=== PATIENT | female | born 1985 | race Caucasian/White ===

== ENCOUNTER → 2016-11-11 | Outpatient (CLI) | payer MEDICARE, MEDICAID ==
[~2016-11-11] MED LIST: BUSPIRONE HCL7.5 MG PO; DEPO PROVER150 MG/ML IM; ELAVIL100 MG PO; GEODON40 MG PO; GLUCOPHAGE1000 MG PO; K-TAB ER20 MEQ PO; LEVEMIR FL100 UNIT/1 SUB-Q; LIORESAL10 MG PO; LYRICA 50MG CAP50 MG PO; MINIPRESS1 MG PO; MOTRIN800 MG PO; NORCO 5-325 TA1 EACH PO; NOVOLOG100 UNIT/M SUB-Q; OPANA ER10 MG PO; PROTONIX40 MG PO; PROVENTIL OR V6.7 GM INH; SALAGEN5 MG PO; SYMBICORT 16010.2 GM INH; VERAPAMIL HCL120 MG PO; VIBERZI75 MG PO
--- NOTE | ~2016-11-11 | PUL ---
PATIENT'S NAME: ANNI RODRÍGUEZ [facility] AGE: 31 Y [address] ROOM: [place] [address] LOCATION: [facility] ADMIT DATE: 11/11/2016 Pulmonary DISCHARGE DATE: FAMILY PHYSICIAN: Wesly Dewitt MD ATTENDING PHYSICIAN: Wesly Dewitt NAME OF PROCEDURE: Sleep study DATE OF PROCEDURE: 11/11/16 TECH: Reilly Keating, INTERIOR PANELER TEST #: [facility] [place]# [id number] MEDICAL HISTORY: The patient is a 31-year-old overweight woman with daytime sleepiness and snoring. SLEEP STAGE SUMMARY: The patient was studied for 406 minutes of which she slept 388 minutes. She fell asleep in 4 minutes and slept for 96% of the night. Sleep architecture revealed a decline in REM sleep. RESPIRATORY SUMMARY: Oxygen saturations ranged from 89-95%. This study was done on 1 liter of oxygen because the patient wears it around the clock at home. There were 5 apneas and 9 hypopneas for an apnea/hypopnea index normal at 2.2 events per hour. EKG SUMMARY: No dysrhythmias were noted. LIMB MOVEMENT SUMMARY: No clinically relevant periodic limb movements were noted. SUMMARY: No evidence of significant obstructive sleep apnea on this study. PLAN: Patient will receive results from the ordering provider. MD SURESH CHILDRESS/ /[id number] dtt: 11/14/16 1303 Norma David E. dtd: 11/13/16 1332
== END | disposition disaster alternative care site (69) ==
LOC: GSLP 20:35
DX: G47.19 Other hypersomnia (principal); R06.83 Snoring

== ENCOUNTER → 2017-01-09 | Outpatient (CLI) | payer MEDICARE, MEDICAID | END | disposition disaster alternative care site (69) | LOC: LKCL 17:31 | DX: Z12.4 Encounter for screening for malignant neoplasm of cervix (principal) | CPT/HCPCS: G0145 ==

== ENCOUNTER 2017-03-02 10:38 | Inpatient (IN) | payer MEDICARE, MEDICAID ==
[~2017-03-02] VITALS: Ht 154.9 cm; Wt 112.5 kg
--- NOTE | ~2017-03-02 | ER ---
PATIENT'S NAME: ANNI RODRÍGUEZ [facility] AGE: 31 Y [address] ROOM: [address] [place] [address] LOCATION: [facility] ADMIT DATE: 03/02/2017 ER/Outpatient Report DISCHARGE DATE: FAMILY PHYSICIAN: Wesly Dewitt MD ATTENDING PHYSICIAN: Ronald BRADFORD Time of Arrival: 1038 hours. Time of Evaluation: 1045 hours. IDENTIFICATION: A 31-year-old female. CHIEF COMPLAINT: Vomiting. HISTORY OF PRESENT ILLNESS: The patient is a 31-year-old female, who went to the clinic to Dr. Dewitt's office and was sent here for IV fluids. Yesterday, she vomited 3 times but did not note any blood in it. Then last evening, she drank 5 bottles of water, went to the office today and was advised to come here. She also says she has some rash in her "private parts" and was told that could be checked out here as well. The patient has had no fever or chills. She had nausea, vomiting 3 times yesterday and one time this morning. She has excessive thirst. She has no history of diabetes. She is on metformin for polycystic ovarian disease, which she describes as "prediabetes." She apparently, however, did receive some IV fluids in [place], and at that time had an elevated blood sugar but is telling us that she had no recommendations for followup. ALLERGIES: PENICILLIN AND ORAL MORPHINE. CURRENT MEDICATIONS: 1. Pilocarpine 5 mg 4 times a day. 2. Metformin 1000 mg b.i.d. 3. Amitriptyline 100 mg 1-1/2 tablet at h.s. 4. Viberzi 75 mg 2 times daily. 5. KCl 20 mEq b.i.d. 6. Verapamil 120 mg b.i.d. 7. Hydrocodone and acetaminophen 5/325 one q.6-8 hours. 8. Baclofen 10 mg t.i.d. 9. Prazosin 1 mg at h.s. 10. Lyrica 50 mg in the morning and 100 mg at h.s. 11. Opana ER 10 mg b.i.d. 12. Buspirone 7.5 mg b.i.d. PATIENT'S NAME: ANNI RODRÍGUEZ [facility] AGE: 31 Y [address] ROOM: [address] [place], [place] [address] [facility] ADMIT DATE: 03/02/2017 ER/Outpatient Report DISCHARGE DATE: FAMILY PHYSICIAN: Wesly Dewitt MD ATTENDING PHYSICIAN: Ronald BRADFORD 13. Pantoprazole 40 mg daily. 14. Ziprasidone 40 mg daily for 7 days starting on 02/26/2017. 15. Ibuprofen 800 mg t.i.d. p.r.n. pain. 16. Depo-Provera. MEDICAL PROBLEMS: Bipolar disorder, chronic back pain, irritable bowel syndrome, polycystic ovarian disease, "prediabetes," and obesity. PRIOR SURGERIES: Cholecystectomy and 2 foot surgeries. FAMILY HISTORY: Positive for diabetes. SOCIAL HISTORY: The patient lives in [place]. She is disabled. Tobacco use, 1 pack per day for 15 years. Alcohol use, rare. Drug use, denies. REVIEW OF SYSTEMS: All systems reviewed and negative other than what is noted in the HPI. Specifically, she denies any chest pain. She is diaphoretic. She has slight cough. No shortness of breath. No abdominal pain. PHYSICAL EXAMINATION: VITAL SIGNS: Height 5 feet 1-1/2 inches, weight 108.2 kg, blood pressure 148/102, pulse 125, respirations 20, temperature 98.1, sats 96%. GENERAL: A diaphoretic, 31-year-old female, in no acute distress. HEENT: Head: Normocephalic, atraumatic. Ears: TMs translucent both ears. Eyes: Pupils equal and reactive to light and accommodation. Extraocular movements intact. Nose: Mucosa pink. No lesions or drainage. Mouth: No lesions. Pharynx benign. NECK: Supple. No lymphadenopathy. No nuchal rigidity. LUNGS: Clear to auscultation. Breath sounds are equal. No rhonchi, wheezes, or rales. HEART: Sinus tachycardia. No murmur, rub, or gallop. ABDOMEN: Protuberant. Bowel sounds present. Soft, nondistended, nontender. SKIN: Diaphoretic. No lesions. NEURO: The patient is alert and oriented x4. Cranial nerves 2 through 12 grossly intact. Motor strength 5/5 throughout. Sensation is intact to light touch. MUSCULOSKELETAL: She has no bony tenderness. : External genitalia, erythematous. No drainage. She has one scabbed lesion just above the clitoral ventura. PATIENT'S NAME: ANNI RODRÍGUEZ [facility] AGE: 31 Y [address] ROOM: [id number] [place], [place] [address] LOCATION: [facility] ADMIT DATE: 03/02/2017 ER/Outpatient Report DISCHARGE DATE: FAMILY PHYSICIAN: Wesly Dewitt MD ATTENDING PHYSICIAN: Ronald BRADFORD LABORATORY DATA AND X-RAYS: EKG: Sinus tachycardia, 117 beats per minute. No acute ST elevation or depression. T-wave inversion noted inferiorly and in leads V1 to V5. Lactate elevated at 3.6. Hemoglobin 13.4, hematocrit 42.3, platelets 369, white count 13.9, normal differential. UA: 1000 mg/dL glucose, 50 mg/dL of ketones, urine HCG negative. The pH of 7.26, pCO2 of 24, that is venous. Serum osmolality 311, magnesium 2.3. GC and chlamydia of the urine negative. Troponin I less than 0.040. Sodium 120, potassium 4.0, chloride 86, CO2 of 11, BUN 9, creatinine 1.4. Blood sugar 906. Liver enzymes elevated. AST 57, ALT 61, procalcitonin 0.11. Alcohol level less than 0.010. Hemoglobin A1c 12.2. Serum ketones positive 1:64. Urine drug screen negative. UA otherwise negative. Urine hCG negative. Wet prep of the vagina negative for yeast. IMPRESSION AND PLAN: 1. Diabetic ketoacidosis. The patient received 1 L of normal saline in the emergency room, insulin drip per protocol has been initiated with 10 units of bolus and 10 units/hour as recommended per Dr. Bradford, admitting physician, who also evaluated the patient in the emergency room. 2. Nausea and vomiting secondary to diabetic ketoacidosis. 3. Pseudohyponatremia. 4. EKG with nonspecific ST-T wave changes. 5. Acute kidney injury. Creatinine 1.4. Previous creatinine 0.8 in 2013. 6. Elevated liver enzymes. 7. Vaginitis. Possibly mason, although with a wet prep is negative, but risk factors include undiagnosed diabetes with hyperglycemia. The patient remained hemodynamically stable throughout her stay here in the emergency room. MD James ROD /[id number] d: 03/02/17 2149 t: 03/03/17 0609, OUTPATIENT REPORT
--- NOTE | ~2017-03-02 | HP ---
PATIENT'S NAME: ANNI RODRÍGUEZ [facility] AGE: 31 Y [address] ROOM: [place] [address] [facility] ADMIT DATE: 03/02/2017 History & Physical DISCHARGE DATE: FAMILY PHYSICIAN: Wesly Dewitt MD ATTENDING PHYSICIAN: Ronald ARAGON DATE OF SERVICE: CHIEF COMPLAINT: Nausea and vomiting. HISTORY OF PRESENT ILLNESS: The patient is a 31-year-old female with the past medical history of obesity, bipolar disorder, type 2 diabetes, and polycystic ovarian cancer, who presents here with nausea and vomiting. The patient reports that for the past few days she has been experiencing nausea and vomiting. She also reports of polyuria and polydipsia. The patient reports that she has been seen last week, at [facility] for "weight loss" as her psychiatrist noted that she has lost close to 12 pounds within a month. She was told by her primary care physician to go to the emergency department. At [facility], she reports that she was given some fluids and insulin and was discharged to home. However, she reports that she is still having this symptoms of nausea, vomiting, dehydration, and for the past couple of days, symptoms of lightheadedness and dizziness. The patient denies chest pain, fever, cough, abdominal pain, diarrhea, chills, and productive cough. PAST MEDICAL HISTORY: 1. Bipolar. 2. Diabetes mellitus, type 2. 3. Polycystic ovarian cancer. 4. IBS. PAST SURGICAL HISTORY: Cholecystectomy. FAMILY HISTORY: Diabetes mellitus, both father and mother, and grandfather has a history of esophageal cancer. SOCIAL HISTORY: The patient is a smoker. The patient is disabled due to her bipolar disorder. States she seldomly drinks alcohol. PATIENT'S NAME: ANNI RODRÍGUEZ [facility] AGE: 31 Y [address] ROOM: [place] [address] [facility] ADMIT DATE: 03/02/2017 History & Physical DISCHARGE DATE: FAMILY PHYSICIAN: Wesly Dewitt MD ATTENDING PHYSICIAN: Ronald ARAGON MEDICATIONS: Currently being reconciled. REVIEW OF SYSTEMS: All systems have been reviewed and are negative except for what I mentioned in the HPI. PHYSICAL EXAMINATION: VITAL SIGNS: Blood pressure 125/ , temperature 98.1, heart rate 114, respiratory rate 14, and saturating 96% on room air. GENERAL APPEARANCE: The patient is alert and awake, in no acute distress. HEAD: Normocephalic and atraumatic. EYES: Extraocular muscles intact. CHEST: Clear to auscultation bilaterally. HEART: Tachycardic. No murmurs, rubs, or gallops. NOSE: No nasal discharge. MOUTH: Dry oral mucosa. ABDOMEN: Soft, nontender, and nondistended. SKIN: Warm to touch. PULL UP HAND: Alert and oriented x3. Motor and sensory grossly intact. MUSCULOSKELETAL: Range of motion intact. No obvious joint effusion. LABORATORY DATA: Glucose of 906, BUN of 9, and creatinine of 1.4. Sodium 120, potassium of 4, chloride of 86, and CO2 of 11. CBC shows white blood cell count of 13.9, hemoglobin of 13.4, and platelets of 369,000. ABG shows a pH of 7.26, pCO2 of 24, and pO2 of 132. Lactate of 3.6. Troponin 0.040. EKG; sinus tachycardic with no ischemic, ST, and ST-T changes. ASSESSMENT AND PLAN: 1. Diabetic ketoacidosis. The patient is presenting with diabetic ketoacidosis with a pH of 7.2, 7.26, and a bicarbonate of 10.8. Blood glucose of 900, and also urine shows positive for ketones. Initially, the patient was on metformin at home. We will discontinue the metformin. The patient has already received 2 L of IV fluids in the emergency department. We will start the patient on 10 units of insulin regular bolus and drip of 10 units an hour. We will acquire CMS every 4 hours. We will start the patient on normal saline at 200 mL an hour with a potassium of 30 mEq. Once the patient's gap is closed, we will transfer PATIENT'S NAME: ANNI RODRÍGUEZ [facility] AGE: 31 Y [address] ROOM: [id number] [place], [place] [address] [facility] ADMIT DATE: 03/02/2017 History & Physical DISCHARGE DATE: FAMILY PHYSICIAN: Wesly Dewitt MD ATTENDING PHYSICIAN: Ronald ARGAON the patient on long-acting insulin. 2. Acute kidney injury. Etiology secondary to dehydration. We will continue IV fluids. 3. Tobacco abuse. A long discussion was made about counseling, was made about cessation greater than 3 minutes, but less than 10 minutes were spent on tobacco cessation. We will offer nicotine patch. 4. Bipolar disorder. We will hold the patient's oral medication as the patient has nausea and vomiting for now. When gap is closed, we will continue the patient's bipolar medication. 5. Dehydration, on IV fluids. 6. Morbid obesity, ongoing. Greater than 70 minutes were spent on patient's care. Greater than 50% was spent in direct patient's care. Discussion was made about the patient's current diagnosis. All questions were answered with satisfaction. We will admit the patient for diabetic ketoacidosis. BLAKEWE MD CIERRA ARAGON/randi /[id number] D: 535 T: 232 HISTORY & PHYSICAL
--- NOTE | ~2017-03-02 | DS ---
PATIENT'S NAME: ANNI RODRÍGUEZ [facility] AGE: 31 Y [address] ROOM: [address] [address] LOCATION: [facility] ADMIT DATE: 03/02/2017 Discharge Summary DISCHARGE DATE: 03/04/2017 FAMILY PHYSICIAN: Wesly Dewitt MD ATTENDING PHYSICIAN: Ronald Bradford PRINCIPAL DIAGNOSES: 1. Diabetic ketoacidosis. 2. New-onset type 2 diabetes. 3. Polycystic ovarian syndrome. 4. Moderate obesity. 5. Bipolar disorder. HOSPITAL COURSE: This is a 31-year-old female with a history of obesity, bipolar disorder, prediabetes, polycystic ovarian cancer, who presents to the emergency room with nausea, vomiting, and noted to be hyperglycemic and in DKA. The patient was immediately started on insulin drip under DKA protocol and was admitted for management. The patient's A1c on admission was noted to be 12 as well. The patient responded well to IV insulin protocols. In subsequent days, the patient was seen by the public health educator, and her insulin regimen was titrated per her need. At this point, the patient will be discharged home on 25 units of Levemir nightly with 7 units of NovoLog with meals, and she is to check her blood sugars before meals and nightly. She will follow up with her primary care physician within 1 week, and at that point, she will have a renal panel and magnesium done. She will also follow up with [facility] on March 20, 2017, and have an appointment at 2 p.m. PHYSICAL EXAMINATION: GENERAL: The patient today is awake, alert, and oriented x3, in no acute distress. Tolerating p.o. well. HEART: S1 and S2. Regular rate and rhythm. CHEST: Clear to auscultation bilaterally. ABDOMEN: Soft, nontender, and nondistended. EXTREMITIES: Without edema. NEUROLOGIC: Nonfocal. MEDICATIONS: Per MAR includin. Levemir 25 units nightly. 2. NovoLog 7 units t.i.d. with meals. 3. Metformin 1000 mg b.i.d. DISPOSITION: Home. FOLLOWUP: She will follow with PCP within 1 week and [facility] on March 20, 2017. PATIENT'S NAME: ANNI RODRÍGUEZ [facility] AGE: 31 Y [address] ROOM: [address] [place], [place] [address] LOCATION: [facility] ADMIT DATE: 03/02/2017 Discharge Summary DISCHARGE DATE: 03/04/2017 FAMILY PHYSICIAN: Wesly Dewitt MD ATTENDING PHYSICIAN: Ronald Bradford Greater than 30 minutes were spent in discharge planning and facilitating. MD MARTI BALLARD/modl /[id number] d: 03/05/17 0425 t: 03/24/17 1521, DISCHARGE SUMMARY
[2017-03-02 11:28] LABS: BILIRUBIN URINE NEGATIVE (NEGATIVE); BLOOD URINE NEGATIVE /UL (NEGATIVE); COLOR URINE COLORLESS (YELLOW); GLUCOSE URINE 1000 mg/dL (NEGATIVE); KETONE URINE 50 mg/dL (NEGATIVE); LEUKOCYTES URINE 25 /UL (NEGATIVE); NITRITE URINE NEGATIVE (NEGATIVE); PROTEIN URINE NEGATIVE (NEGATIVE); TURBIDITY URINE CLEAR (CLEAR); UROBILINOGEN URINE NORMAL (NORMAL)
[2017-03-02 11:29] LABS: BASOPHIL # 0.1 K/uL (0.0-0.2); BASOPHIL % 0.4 %; BICARBONATE 10.8 mmol/L (18.0-23.0); EOSINOPHIL # 0.1 K/uL (0.0-0.5); EOSINOPHIL % 0.6 %; HEMATOCRIT 42.3 % (33.0-46.0); HEMOGLOBIN 13.4 g/dL (11.0-15.0); IMMATURE GRANULOCYTE % 0.3 %; LYMPHOCYTE # 2.2 K/uL (0.8-4.0); MCH 27.1 pg (27.0-34.0); MCHC 31.7 gm/dL (32.0-36.5); MCV 85.6 fl (83.0-98.0); MONOCYTE # 0.8 K/uL (0.0-1.0); MONOCYTE % 5.5 %; MPV 12.4 fl (9.4-12.4); NEUTROPHIL # (ANC) 10.7 K/uL (1.8-7.8); NEUTROPHIL % 77.2 %; NRBC % 0 /100WBC (0-0.00); PCO2 24 mmHg (35-45); PLATELET COUNT 369 K/uL (150-450); PO2 132 mmHg (80-90); RBC 4.94 M/uL (3.50-5.50); RDW-CV 14.6 % (11.9-14.6); WBC 13.9 K/uL (4.0-11.0)
[2017-03-02 11:36] LABS: BACTERIA URINE RARE (NEGATIVE); EPITHELIAL URINE 0-2 #/HPF (NEGATIVE); MUCUS URINE 1+ (NEGATIVE); RBC URINE 0-2 #/HPF (NEGATIVE); WBC URINE RARE #/HPF (NEGATIVE); YEAST URINE FEW (NEGATIVE)
[2017-03-02 11:44] LABS: BARBITURATE NEGATIVE (NEGATIVE); COCAINE NEGATIVE (NEGATIVE); OPIATES NEGATIVE (NEGATIVE)
[2017-03-02 11:48] LABS: AMPHETAMINE NEGATIVE (NEGATIVE)
[2017-03-02 11:54] LABS: ALBUMIN 3.9 gm/dL (3.5-5.0); ALK PHOS 157 IU/L (33-138); ALT 61 IU/L (12-78); AST 57 IU/L (10-40); BLOOD UREA NITROGEN 9 mg/dL (6-24); CALCIUM 8.7 mg/dL (8.5-10.5); CREATININE 1.4 mg/dL (0.5-1.1); ESTIMATED GFR (MDRD EQUATION) 44; TOTAL BILIRUBIN 0.8 mg/dL (0.0-1.5); TOTAL PROTEIN 8.4 g/dL (6.0-8.4)
[2017-03-02 12:01] LABS: CHLORIDE 86 mMol/L (96-110); CO2 11 mMol/L (22-32); SODIUM 120 mMol/L (135-145)
[2017-03-02 12:24] LABS: MAGNESIUM 2.3 mg/dL (1.8-2.6)
--- NOTE | 2017-03-02 14:52 | NUR ---
Pt is 31 y/o female admit for hyperglycemia for hospitalist. Allergies to oral morphine,shellfish,fish oil,omega 3,and PCN. Red bracelet on. Hx of asthma,bronchitis,pneumonia,cough,sleep apnea-ref CPAP,IBS,gerd,heartburn, stress incontinence,frequent urination,excess thirst,excess urination, recent foot fx and repair-uses exogen machine on R)foot. Pt alert and oriented x3. Resides at home with significant other.
[2017-03-02] MEDS ORDERED: LIORESAL10 MG PO (15:12)
[2017-03-02] MEDS ORDERED: MINIPRESS1 MG PO (15:12)
[2017-03-02] MEDS ORDERED: LYRICA 50MG CAP50 MG PO ×2 (15:13)
[2017-03-02] MEDS ORDERED: K-TAB ER20 MEQ PO (15:14)
[2017-03-02] MEDS ORDERED: VERAPAMIL HCL120 MG PO (15:15)
[2017-03-02] MEDS ORDERED: GLUCOPHAGE1000 MG PO (15:15)
[2017-03-02] MEDS ORDERED: ELAVIL100 MG PO (15:16)
[2017-03-02] MEDS ORDERED: SALAGEN5 MG PO (15:17)
[2017-03-02] MEDS ORDERED: OPANA ER10 MG PO (15:19)
[2017-03-02] MEDS ORDERED: PROTONIX40 MG PO (15:19)
[2017-03-02] MEDS ORDERED: BUSPIRONE HCL7.5 MG PO (15:20)
[2017-03-02] MEDS ORDERED: VIBERZI75 MG PO (15:22)
[2017-03-02] MEDS ORDERED: NORCO 5-325 TA1 EACH PO (15:28)
[2017-03-02 15:29] LABS: ALBUMIN 3.7 gm/dL (3.5-5.0); CALCIUM 8.3 mg/dL (8.5-10.5); CREATININE 1.2 mg/dL (0.5-1.1); POTASSIUM 3.5 mMol/L (3.7-5.1); TOTAL PROTEIN 7.7 g/dL (6.0-8.4)
[2017-03-02] MEDS ORDERED: GEODON40 MG PO (15:29)
[2017-03-02] MEDS ORDERED: MOTRIN800 MG PO (15:30)
[2017-03-02 15:36] LABS: ANION GAP 16.5 (10.0-19.0)
[2017-03-02 15:39] LABS: TOTAL BILIRUBIN 0.4 mg/dL (0.0-1.5)
[2017-03-02] MEDS ORDERED: DEPO PROVER150 MG/ML IM (15:40)
[2017-03-02] MEDS ORDERED: SYMBICORT 16010.2 GM INH (16:45)
[2017-03-02] MEDS ORDERED: PROVENTIL OR V6.7 GM INH (16:45)
[2017-03-02 19:18] LABS: ALBUMIN 3.6 gm/dL (3.5-5.0); ALK PHOS 129 IU/L (33-138); ALT 56 IU/L (12-78); ANION GAP 12.5 (10.0-19.0); AST 59 IU/L (10-40); BLOOD UREA NITROGEN 5 mg/dL (6-24); CALCIUM 8.1 mg/dL (8.5-10.5); CHLORIDE 104 mMol/L (96-110); CO2 21 mMol/L (22-32); CREATININE 0.9 mg/dL (0.5-1.1); ESTIMATED GFR (MDRD EQUATION) > 60; POTASSIUM 3.5 mMol/L (3.7-5.1); SODIUM 134 mMol/L (135-145); TOTAL PROTEIN 7.4 g/dL (6.0-8.4)
[2017-03-02 19:20] LABS: TOTAL BILIRUBIN 0.5 mg/dL (0.0-1.5)
--- NOTE | 2017-03-02 20:12 | NUR ---
D:Alexandra ROGERS called report at 1330. Patient recieved at 1400. No c/o pain. Patient has insulin gtt infusing at 10 units/hr. Is able to answer questions. Reports that she didn't know that she was diabetic till last week. No one had told her to check her blood sugar. Patient usually sees Dr. Gomez Dewitt. P:Diabetic education, monitoring blood sugars
--- NOTE | 2017-03-03 04:10 | NUR ---
SSignificant Event: PATIENT IS ALERT AND ORIENTED. VSS. BP RUNS HIGH. OFF OF INSULIN DRIP. ACCUCHECKS ARE ACHS. SSI-MILD. IV IS SL. LEFT A/C. NEW DIAGNOSIS OF DIABETES. USES EXOGEN MACHINE AT HS TO RIGHT ANKLE FOR PREVIOUS ANKLE INJURY. NORCO AT HS. ON ROOM AIR. CALLS APPROPRIATELY. Follow up:
[2017-03-03 05:25] LABS: ALBUMIN 3.2 gm/dL (3.5-5.0); ALK PHOS 117 IU/L (33-138); ALT 59 IU/L (12-78); AST 110 IU/L (10-40); BLOOD UREA NITROGEN 5 mg/dL (6-24); CHLORIDE 106 mMol/L (96-110); CREATININE 0.7 mg/dL (0.5-1.1); ESTIMATED GFR (MDRD EQUATION) > 60; POTASSIUM 4.4 mMol/L (3.7-5.1); SODIUM 134 mMol/L (135-145); TOTAL BILIRUBIN 0.5 mg/dL (0.0-1.5); TOTAL PROTEIN 6.9 g/dL (6.0-8.4)
[2017-03-03 05:26] LABS: ANION GAP 16.4 (10.0-19.0); CO2 16 mMol/L (22-32)
--- NOTE | 2017-03-03 12:37 | NUR ---
Diabetes center note: 1100 CDE began education with patient, who states she was diagnosed last week with diabetes and was started on Metformin, but over this past weekend she went to ER in [place], patient states they gave her some IV fluids and an insulin shot and sent her home. On 03/03/17 she drove herself from [place] where she lives to [place], to see Dr. Idalia Dewitt her primary care doctor. At that time her blood sugar was over 900, she was admitted to the hospital, placed on an insulin drip, now she is being given Levemir insulin and sliding scale insulin. x2 new Otilia blood glucose monitoring machines are given and 40 test strips, CDE did demonstrate use of meter, patient states she did test her blood sugar a few years ago, as she had "prediabetes and PCOS" Patient also reports that she was prescribed Latoda for depression about 2-3 weeks ago, and she states that is when she first started not feeling well. CDE also demonstrated use of insulin pen devices, instructed on insulin action for Levemir and Novolog insulin, storage site rotation and importance of timing of insulin. Patient is understanding information provided and asks appropriate questions. Consult submitted for RD to educate on carb counting, meal planning. Patient is reading in the Diabetes management booklet and filling out parts of the Assessment form. Hypoglycemia signs and symptoms explained and treatment with 15 grams of carb. Patient is retaining information and states understanding, will continue teaching this afternoon. A1C was 12.2 %
[2017-03-03 12:48] LABS: BASOPHIL # 0.1 K/uL (0.0-0.2); BASOPHIL % 0.4 %; EOSINOPHIL # 0.3 K/uL (0.0-0.5); EOSINOPHIL % 2.3 %; HEMATOCRIT 39.3 % (33.0-46.0); HEMOGLOBIN 12.7 g/dL (11.0-15.0); IMMATURE GRANULOCYTE % 0.4 %; LYMPHOCYTE # 2.3 K/uL (0.8-4.0); LYMPHOCYTE % 20.3 %; MCH 27.4 pg (27.0-34.0); MCHC 32.3 gm/dL (32.0-36.5); MCV 84.7 fl (83.0-98.0); MONOCYTE # 0.5 K/uL (0.0-1.0); MONOCYTE % 4.2 %; MPV 11.5 fl (9.4-12.4); NEUTROPHIL # (ANC) 8.1 K/uL (1.8-7.8); NEUTROPHIL % 72.4 %; NRBC % 0 /100WBC (0-0.00); PLATELET COUNT 370 K/uL (150-450); RBC 4.64 M/uL (3.50-5.50); RDW-CV 14.4 % (11.9-14.6); WBC 11.1 K/uL (4.0-11.0)
[2017-03-03 13:01] LABS: ALBUMIN 3.5 gm/dL (3.5-5.0); BLOOD UREA NITROGEN 5 mg/dL (6-24); CALCIUM 8.1 mg/dL (8.5-10.5); CHLORIDE 103 mMol/L (96-110); ESTIMATED GFR (MDRD EQUATION) > 60; MAGNESIUM 2.1 mg/dL (1.8-2.6); POTASSIUM 4.4 mMol/L (3.7-5.1); SODIUM 132 mMol/L (135-145)
[2017-03-03 13:02] LABS: ANION GAP 19.4 (10.0-19.0); CO2 14 mMol/L (22-32)
[2017-03-03 13:03] LABS: PHOSPHORUS 1.5 mg/dL (2.5-4.9)
--- NOTE | 2017-03-03 13:51 | NUR ---
Introduced self and care management services to patient. Lives in [place] with boyfriend. Denies concerns about going home on discharge, says she gets to go home tomorrow and has called her mom and boyfriend to come get her. Asked her if she has any trouble getting her medications and she said no, that she gets them in [place] at pharmacy there. Asked if she understands how to take her medicines or has questions about that and she said no, she understands her medicine. Will follow and assist with dc planning as needs identified.
--- NOTE | 2017-03-03 14:23 | NUR ---
Diabetes note: Patient has been reading and study in the Diabetes Management Booklet, reviewed some of the topics we discussed this a.m., reinforced importance of follow up with Dr. Idalia Dewitt following hospital stay. Provided samples of B-D pen needles to assist with patient getting started with insulin injections at home, will need script written in a.m. with the doses of insulin that she is to take at home. Patient is very anxious/worried regarding how she may get home tomorrow. She drove her car to [place] by self, and states her appointment with mental health counselor is today afternoon, so will need assistance with transportation, as MD told her that she should not drive for first days after hospital stay. Patient will attempt to get in touch with her boyfriend. Will have CDE follow up with patient in a.m. to reinforce what has already been taught, as guided by the Diabetes Survival Skills checklist, and will need the last page of the form to be completed.
[2017-03-03 18:40] LABS: ALBUMIN 3.5 gm/dL (3.5-5.0); BLOOD UREA NITROGEN 5 mg/dL (6-24); CALCIUM 7.8 mg/dL (8.5-10.5); CHLORIDE 108 mMol/L (96-110); CREATININE 0.8 mg/dL (0.5-1.1); ESTIMATED GFR (MDRD EQUATION) > 60; POTASSIUM 3.9 mMol/L (3.7-5.1); SODIUM 136 mMol/L (135-145)
[2017-03-03 18:41] LABS: ANION GAP 16.9 (10.0-19.0); CO2 15 mMol/L (22-32); PHOSPHORUS 0.8 mg/dL (2.5-4.9)
--- NOTE | 2017-03-03 18:49 | NUR ---
Patient is A/O and denies c/o pain. IV bolus x 2 liters and extra IV/SQ insulin given for elevated blood glucose levels. Patient ambulates independently in the room. Room air. SR/ST per telemetry.
--- NOTE | 2017-03-04 04:19 | NUR ---
Pt a/o. st 110's, sbp 150-180's. afebrile. fsbs 250-335. con't on levimer and mod scale SSI. sba. ns at 125ml/hr in LAC. Plan: ? d/c today if sugars under better controll. has psych appointment in [place] today
[2017-03-04 06:02] LABS: BASOPHIL % 0.3 %; EOSINOPHIL # 0.3 K/uL (0.0-0.5); EOSINOPHIL % 3.6 %; HEMATOCRIT 33.8 % (33.0-46.0); IMMATURE GRANULOCYTE % 0.3 %; LYMPHOCYTE # 2.5 K/uL (0.8-4.0); LYMPHOCYTE % 32.7 %; MCH 27.4 pg (27.0-34.0); MCHC 32.5 gm/dL (32.0-36.5); MCV 84.3 fl (83.0-98.0); MONOCYTE # 0.5 K/uL (0.0-1.0); MONOCYTE % 6.2 %; MPV 11.3 fl (9.4-12.4); NEUTROPHIL # (ANC) 4.4 K/uL (1.8-7.8); NEUTROPHIL % 56.9 %; NRBC % 0 /100WBC (0-0.00); RBC 4.01 M/uL (3.50-5.50); RDW-CV 14.4 % (11.9-14.6); WBC 7.8 K/uL (4.0-11.0)
[2017-03-04 06:03] LABS: PLATELET COUNT 280 K/uL (150-450)
[2017-03-04 06:25] LABS: ALBUMIN 2.9 gm/dL (3.5-5.0); BLOOD UREA NITROGEN 3 mg/dL (6-24); CHLORIDE 111 mMol/L (96-110); CREATININE 0.6 mg/dL (0.5-1.1); ESTIMATED GFR (MDRD EQUATION) > 60; MAGNESIUM 1.9 mg/dL (1.8-2.6); POTASSIUM 3.4 mMol/L (3.7-5.1); SODIUM 140 mMol/L (135-145)
[2017-03-04 06:27] LABS: ANION GAP 15.4 (10.0-19.0); CALCIUM 7.4 mg/dL (8.5-10.5); CO2 17 mMol/L (22-32); PHOSPHORUS 1.8 mg/dL (2.5-4.9)
--- NOTE | 2017-03-04 09:00 | NUR ---
Diabetes Consult: Patient reports being newly diagnosed with Type II diabetes. Patient states she has medicaid for insurance and will need to be instructed on use of vial and syringe. The patient was given a contour next glucometer. She was informed of the Reli on prime glucometer that can be purchased OTC that is inexpensive at [facility] if insurance does not adequately pay for testing supplies. The patient was instructed on how to draw up insulin using a syringe. She was able to redemonstrated this correctly. She was provided with some insulin syringes for home. She reports her primary care physician is Dr. Rodriguez and reports wanting to follow up with a CDE in the Diabetes Center upon discharge. Referral orders faxed to Dr. Gomez Herrera and patient tentatively scheduled for March 20 at 2:00 p.m. Patient denies any questions or concerns. Diabetes education completed.
--- NOTE | 2017-03-04 10:50 | NUR ---
BASIC DB DIET ED COMPLETED W/ PT, HANDOUT GIVEN. PT STATES SHE WILL SEE AN OUTPATIENT RD FOR DB ED AFTER DISMISSAL. PT HAS NO QUESTIONS AT THIS TIME. BUSINESS CARD GIVEN, ENCOURAGED TO CALL W/ QUESTIONS IF NEEDED.
[2017-03-04] MEDS ORDERED: NOVOLOG100 UNIT/M SUB-Q (12:39)
[2017-03-04] MEDS ORDERED: LEVEMIR FL100 UNIT/1 SUB-Q (12:40)
--- NOTE | 2017-03-04 15:46 | NUR ---
PATIENT DISMISSED TO HOME WITH SIGNIFICANT OTHER PER PRIVATE CAR. PATIENT TRANSFERED TO CAR PER W/C BY RN. REVIEWED DISMISSAL INSTRUCTIONS WITH PATIENT, SHE VERBALIZED UNDERSTANDING. PATIENT STATED SHE HAD NO FURTHER QUESTIONS ABOUT DIABETES MANAGEMENT OR MEDICATIONS. GAVE PATIENT INFORMATION SHEETS ABOUT NEW MEDICATIONS AND SMOKING CESSATION. PATIENT WAS GIVEN HOME MED FROM MED ROOM AND INSULIN SAMPLES FROM REAL TIME ANALYST.
== END 2017-03-04 13:25 | disposition disaster alternative care site (69) | DRG 638 ==
LOC: GMED 10:38 → GPCU 13:34
PROVIDERS: Family Medicine; Internal Medicine; ADMIT Internal Medicine
DX: E13.10 Other specified diabetes mellitus with ketoacidosis without coma (principal); E87.1 Hypo-osmolality and hyponatremia; N17.9 Acute kidney failure, unspecified; E28.2 Polycystic ovarian syndrome; Z88.0 Allergy status to penicillin; Z88.6 Allergy status to analgesic agent; Z79.84 Long term (current) use of oral hypoglycemic drugs; N76.0 Acute vaginitis; E66.01 Morbid (severe) obesity due to excess calories; K58.9 Irritable bowel syndrome, unspecified; F31.9 Bipolar disorder, unspecified; F17.200 Nicotine dependence, unspecified, uncomplicated; E86.0 Dehydration
CPT/HCPCS: G0480; J1650; J3480; J7030; J7040

== ENCOUNTER → 2017-03-20 | Outpatient (CLI) | payer MEDICARE, MEDICAID | END | disposition disaster alternative care site (69) | LOC: GDIC 13:46 | DX: E11.65 Type 2 diabetes mellitus with hyperglycemia (principal) | CPT/HCPCS: G0108 ==

== ENCOUNTER → 2017-04-09 | Outpatient (CLI) | payer MEDICARE, MEDICAID | LOC: GNUT 04-06 15:30 | DX: E11.65 Type 2 diabetes mellitus with hyperglycemia (principal) ==

== ENCOUNTER → 2017-05-11 | Outpatient (CLI) | payer MEDICARE, MEDICAID | LOC: GNUT 05-04 10:30 | DX: E11.65 Type 2 diabetes mellitus with hyperglycemia (principal) | CPT/HCPCS: G0270 ==